=== PATIENT | male | born 1990 | race African-American/Black ===

== ENCOUNTER 2023-02-27 23:01 | Emergency (ER) | payer OTHER ==
[~2023-02-27] VITALS: Ht 180.3 cm; Wt 80.7 kg
[2023-02-27 23:30] VITALS: BP_SYST 134
--- NOTE | 2023-02-27 23:30 | NUR ---
Triaged and placed patient back to the waiting room. No acute respiratory distress at this time. VSS. Informed patient to notify ED staff for any changes in condition or worsening of symptoms while waiting to be seen by a provider. Patient verbalized understanding.
--- NOTE | 2023-02-28 00:14 | NUR ---
Patient placed in triage room for evaluation.
--- NOTE | 2023-02-28 00:16 | NUR ---
Dr. Chambers in triage room examining the patient.
[2023-02-28] MEDS ORDERED: PENICILLIN G BENZATHINE 1.2 MMU/2 ML SYR IM ONE (00:30)
[2023-02-28] MEDS ORDERED: DARU1TAB3 PO (00:35)
--- NOTE | 2023-02-28 00:55 | NUR ---
Informed the patient that penicillin 2,400,000 injection is not available at this time and gave him the option to stay in the ER and wait till morning when the pharmacist gets here or go home and come back later. Patient decided to come back this morning. Notified Dr. Chambers.
[2023-02-28 01:03] VITALS: BP_SYST 118
--- NOTE | 2023-02-28 01:05 | NUR ---
Patient given written and verbal discharge instructions and verbalizes understanding. ER MD discussed with patient the results and treatment provided. Patient in stable condition. ID arm band removed. Rx of Symtuza given. Patient educated on pain management and to follow up with PMD. Pain Scale 0/10. Opportunity for questions provided and answered. Medication side effect fact sheet provided.
== END 2023-02-28 01:05 | disposition home or self-care (01) ==
LOC: SED 23:01
DX: Z76.0 Encounter for issue of repeat prescription (principal); A51.49 Other secondary syphilitic conditions; Z79.899 Other long term (current) drug therapy
CPT/HCPCS: 99281

== ENCOUNTER 2023-03-02 14:17 | Emergency (ER) | payer OTHER ==
[~2023-03-02] VITALS: Ht 182.9 cm; Wt 83.9 kg
[~2023-03-02 14:17] MED LIST: DARU1TAB3 PO
[2023-03-02 14:38] VITALS: BP_SYST 125
[2023-03-02] MEDS ORDERED: DOXY100T2 PO (14:38)
[2023-03-02 15:16] VITALS: BP_SYST 128
== END 2023-03-02 15:16 | disposition home or self-care (01) ==
LOC: SED 14:17
DX: A53.9 Syphilis, unspecified (principal); Z79.899 Other long term (current) drug therapy
CPT/HCPCS: 99283

== ENCOUNTER 2023-08-06 02:18 | Emergency (ER) | payer OTHER ==
[~2023-08-06] VITALS: Ht 182.9 cm; Wt 80.7 kg
[~2023-08-06 02:18] MED LIST changes: +DOXY100T2 PO
[2023-08-06 02:34] VITALS: BP_SYST 137; PULSE 92; RESP 20; TEMP 98.2; O2SAT 100
[2023-08-06] MEDS ORDERED: DARU1TAB3 PO (04:14)
[2023-08-06] MEDS ORDERED: DOXY100C5 PO (04:14)
[2023-08-06 04:39] VITALS: BP_SYST 137; PULSE 92; RESP 20; TEMP 98.2; O2SAT 100
[2023-08-06 04:48] LABS: BILIRUBIN,URINE NEGATIVE (NEGATIVE); BLOOD, URINE NEGATIVE (NEGATIVE); COLOR,URINE YELLOW (YELLOW); GLUCOSE,URINE NEGATIVE (NEGATIVE); KETONES,URINE NEGATIVE (NEGATIVE); LEUKOCYTE ESTERASE ,URINE NEGATIVE (NEGATIVE); NITRITE, URINE NEGATIVE (NEGATIVE); PH,URINE 5.5 (5.0-8.0); PROTEIN URINE 1+ (NEGATIVE); UROBILINOGEN,URINE 0.2 (0.2-1.0)
[2023-08-06 05:12] LABS: CLARITY/URINE SLIGHTLY CLOUDY (CLEAR)
[2023-08-06 05:13] LABS: BACTERIA,URINE None Seen /HPF (None Seen); RBC,URINE 0-3 /HPF (0-3); WBC,URINE 0-3 /HPF (0-3)
== END 2023-08-06 04:39 | disposition home or self-care (01) ==
LOC: SED 02:18
DX: Z76.0 Encounter for issue of repeat prescription (principal); Z20.2 Contact with and (suspected) exposure to infections with a predominantly sexual mode of transmission; Z79.899 Other long term (current) drug therapy
CPT/HCPCS: 36415; 81000; 87491; 99283

== ENCOUNTER 2024-01-07 14:17 | Emergency (ER) | payer OTHER ==
[~2024-01-07] VITALS: Ht 177.8 cm; Wt 80.3 kg
[~2024-01-07 14:17] MED LIST changes: +DOXY100C5 PO
[2024-01-07 14:34] VITALS: BP_SYST 148; PULSE 81; RESP 16; TEMP 98.7; O2SAT 100
[2024-01-07] MEDS: PENICILLIN G BENZATHINE 1.2 MMU/2 ML SYR IM ONE (16:23)
[2024-01-07 17:14] VITALS: BP_SYST 148; PULSE 81; RESP 16; TEMP 98.7; O2SAT 100
== END 2024-01-07 17:14 | disposition home or self-care (01) ==
LOC: SED 14:17
DX: A53.9 Syphilis, unspecified (principal); R79.9 Abnormal finding of blood chemistry, unspecified; F17.210 Nicotine dependence, cigarettes, uncomplicated; F15.10 Other stimulant abuse, uncomplicated; Z83.0 Family history of human immunodeficiency virus [HIV] disease; Z79.899 Other long term (current) drug therapy
CPT/HCPCS: 99283; 36415; 96372; J0561; 86359; 86360